=== PATIENT | male | born 1950 | race African-American/Black ===

== ENCOUNTER 2022-10-27 11:32 | Inpatient (IN) ==
[2022-10-27] MEDS ORDERED: ONDANSETRON 4 MG/2 ML VIAL IV STA (12:01)
[2022-10-27] MEDS ORDERED: SODIUM CHLORIDE 0.9% 1,000 ML IV STA (12:01)
[2022-10-27 12:13] LABS: Basophils % 0.3 % (0.0-0.8); Eosinophils # 0.2 10*3/uL (0.0-0.87); Eosinophils % 2.7 % (0.00-10.9); Hematocrit 44.2 VOL% (42.0-52.0); Hemoglobin 14.3 GM/DL (14.0-18.0); Immature Granulocytes % 0.1 %; Immature Granulocytes Absolute 0.01 #; Lymphocytes # 2.5 10*3/uL (1.4-4.0); Lymphocytes % 35.9 % (21.2-54.2); Mean Corpuscular HGB Conc 32.4 GM/DL (32-36); Mean Corpuscular Volume 90.2 FL (87-102); Mean Platelet Volume 9.9 FL (9.6-12.0); Monocytes # 0.7 10*3/uL (0.11-0.8); Monocytes % 10.6 % (1.7-12.7); Neutrophils % 50.4 % (38.7-73.9); Platelet Count 252 T/CUMM (130-400)
[2022-10-27 12:16] LABS: Glucose,Urine (UA) Negative (Negative); Mucus,Urine Occasional /LPF (Occasional); Protein,Urine Negative (Negative); RBC,Urine 2 /HPF (0-4); Squamous Epithelial Cell,Urine Occasional /HPF (0-10); Urine Appearance Clear (Clear); Urine Color Yellow (Yellow); Urine Specific Gravity 1.025 (1.001-1.035)
[2022-10-27 12:17] LABS: Bilirubin,Urine Negative (Negative); Blood, Urine Trace mg/dL (Negative); Ketones,Urine Negative (Negative); Nitrite,Urine Negative (Negative)
[2022-10-27] MEDS ORDERED: LABETALOL 20 MG/4 ML SYRINGE IV ONE (12:18)
[2022-10-27 12:22] LABS: PT Patient Result 10.7 SECS (10.1-12.1); Partial Thromboplastin Time 28.4 SECS (23.7-32.9)
[2022-10-27] MEDS ORDERED: LABETALOL 20 MG/4 ML SYRINGE IV STA (12:23)
[2022-10-27 12:35] LABS: Barbiturates Screen,Urine Negative (Negative); Benzodiazepines Screen,Urine Negative (Negative); Cannabinoid Screen,Urine Negative (Negative); Opiate Screen,Urine Negative (Negative); Phencyclidine Screen,Urine Negative (Negative)
[2022-10-27 13:20] LABS: Alanine Aminotransferase 18 U/L (16-61); Albumin 3.9 G/DL (3.4-5.0); Alkaline Phosphatase 134 U/L (45-117); Aspartate Amino Transferase 18 U/L (0-37); Bilirubin,Total < 0.39 MG/DL (0.20-1.00); Blood Urea Nitrogen 13 MG/DL (7-18); Calcium 9.1 MG/DL (8.5-10.1); Carbon Dioxide 30 MMOL/L (21-32); Chloride 106 MMOL/L (98-107); Glucose 103 MG/DL (74-106); Osmolality,Calculated 278.4 MOS/KG (273-304); Potassium 3.9 MMOL/L (3.5-5.1); Sodium 140 MMOL/L (136-145)
[2022-10-27] MEDS ORDERED: ONDANSETRON 4 MG/2 ML VIAL IV PRN (14:38)
[2022-10-27] MEDS ORDERED: ACETAMINOPHEN 325 MG TABLET PO PRN (14:38)
[2022-10-27] MEDS: ENOXAPARIN 40 MG/0.4 ML SYRINGE SUBCUT SCH (15:40)
[2022-10-27] MEDS ORDERED: ROSUVASTATIN 20 MG TABLET PO SCH (21:00)
[2022-10-27] MEDS: SENNA 8.6 MG TABLET PO SCH (21:05)
[2022-10-27] MEDS: DOCUSATE SODIUM 100 MG CAPSULE PO SCH (21:05)
[2022-10-28 06:07] LABS: Basophils % 0.2 % (0.0-0.8); Eosinophils # 0.2 10*3/uL (0.0-0.87); Eosinophils % 3.4 % (0.00-10.9); Hematocrit 40.8 VOL% (42.0-52.0); Immature Granulocytes % 0.2 %; Immature Granulocytes Absolute 0.01 #; Lymphocytes % 34.4 % (21.2-54.2); Mean Corpuscular HGB Conc 31.9 GM/DL (32-36); Mean Corpuscular Volume 91.1 FL (87-102); Mean Platelet Volume 10.2 FL (9.6-12.0); Monocytes # 0.6 10*3/uL (0.11-0.8); Monocytes % 10.2 % (1.7-12.7); Neutrophils % 51.6 % (38.7-73.9); Platelet Count 233 T/CUMM (130-400); Red Blood Count 4.48 MC/CUMM (3.8-5.5); Red Cell Distribution Width 14.1 % (9.3-17.3); White Blood Count 5.9 T/CUMM (4-12)
[2022-10-28 06:33] LABS: Alanine Aminotransferase 17 U/L (16-61); Albumin 3.4 G/DL (3.4-5.0); Alkaline Phosphatase 123 U/L (45-117); Aspartate Amino Transferase 12 U/L (0-37); Bilirubin,Total < 0.39 MG/DL (0.20-1.00); Blood Urea Nitrogen 10 MG/DL (7-18); Calcium 8.8 MG/DL (8.5-10.1); Carbon Dioxide 30 MMOL/L (21-32); Chloride 108 MMOL/L (98-107); Cholesterol 183 MG/DL (50-200); Glucose 90 MG/DL (74-106); HDL Cholesterol 54 MG/DL (40-60); Osmolality,Calculated 281.1 MOS/KG (273-304); Potassium 3.9 MMOL/L (3.5-5.1); Risk Ratio 3.39; Sodium 142 MMOL/L (136-145); Total Protein 7.6 G/DL (6.4-8.2); Triglycerides 98 MG/DL (2-150); VLDL Cholesterol 19.6 MG/DL
[2022-10-28] MEDS: SENNA 8.6 MG TABLET PO SCH (08:48)
[2022-10-28] MEDS: DOCUSATE SODIUM 100 MG CAPSULE PO SCH (08:48)
[2022-10-28] MEDS ORDERED: ASPIRIN EC 81 MG TABLET PO SCH (09:00)
[2022-10-28] MEDS ORDERED: allopurinoL 300 MG TABLET PO SCH (09:00)
[2022-10-28] MEDS ORDERED: amLODIPine 10 MG TABLET PO SCH (09:00)
[2022-10-28] MEDS: ENOXAPARIN 40 MG/0.4 ML SYRINGE SUBCUT SCH (15:32)
[2022-10-28 15:46] VITALS: BP 166/84
== END 2022-10-28 18:26 | disposition home health service (06) | DRG 65 ==
LOC: N.ED 11:32 → SUATTDRO 14:38 → N.EDINP 14:38 → N.3E 16:29
PROVIDERS: ADMIT Family Medicine; ATTEND Family Medicine